=== PATIENT | male | born 1980 | race African-American/Black ===

== ENCOUNTER 2016-10-24 23:39 | Observation (INO) | payer MEDICAID ==
[2016-10-25] MEDS ORDERED: ONDANSETRON HCL 4 MG/2 ML VIAL IV ONE (00:20)
[2016-10-25] MEDS ORDERED: SODIUM CHLORIDE 0.9% 3 ML FLUSH FLUSH PRN (00:20)
[2016-10-25] MEDS ORDERED: MORPHINE 4 MG/ML INJECTION IV ONE (00:20)
[2016-10-25] MEDS ORDERED: NS 1,000 ML IV ONE ×2 (00:20)
--- NOTE | 2016-10-25 00:27 | EDPRACDOC ---
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 PT STATES HAS BEEN GOING ON FOR 2 DAYS. PT ALSO STATES HE WAS HAVING SOME VOMITING PRIOR TO ARRIVAL TO ED. Pain Location: Reports: Upper, Lower, Cervical, Thoracic, Lumbar Pain Radiates To: Reports: Thigh, Buttock (B/L) Pain Caused By: Reports: Spontaneous Circumstances: Reports: Unknown Relevant History: Reports: Chronic back pain Pain Severity: Reports: Moderate Pain Quality: Reports: Aching, Dull, Sharp Worsened By: Reports: Movement, Twisting, Walking Associated Signs and Symptoms: Reports: Nausea, Vomiting <Nicci Torres - Last Filed: 10/25/16 03:34> <Emerita Colin - Last Filed: 10/25/16 06:30> - General Information Chief Complaint: Lower Leg Pain Stated Complaint: BACK & LEG PAIN Time Seen by Provider: 10/25/16 00:03 Home Medications: Home Medications Insulin Novolog 70/30 Mix [Novolog 70-30 Insulin Mix] 45 unit SQ HS 07/21/13 Insulin Novolog 70/30 Mix [Novolog 70-30 Insulin Mix] 65 units SQ QAM #1 vial Insulin Lispro [Humalog] units SQ 08/31/16 Allergies/Adverse Reactions: Allergies Allergy/AdvReac Type Severity Reaction Status Date / Time Penicillins Allergy Severe RASH Verified 07/14/16 03:37 Cephalosporins Allergy Unknown hives Verified 07/14/16 03:37 ibuprofen Allergy Unknown Bleeding Verified 07/14/16 03:37 sulfamethoxazole Allergy Unknown Rash-Genera Verified 07/14/16 03:37 [From Bactrim] lized trimethoprim [From Bactrim] Allergy Unknown Rash-Genera Verified 07/14/16 03:37 lized tramadol Allergy Nausea/Vomi Verified 07/14/16 03:37 ting ED Past Medical History - History Reviewed Yes Nurses notes reviewed and agree except as marked Travel Outside of [place] in the Last 3 Months?: No - Patient Medical History Neurological History: Reports: Dementia Cardiac History: Reports: Hypertension (no longer medicated) GI/ History: Reports: Renal Disease (unsure) Musculoskeletal History: Reports: Rheumatoid Arthritis Psychological History: Reports: Depression Systemic History: Reports: Diabetes (IDDM). Denies: Cancer Surgical History: Reports: Tonsillectomy/Adnoidectomy, Other (HEMORRHOID SX, ABSCESS I AND D) - Family Medical History Reports: Hypertension (sister), Diabetes (mom,2 siblings). Denies: Cancer, Stroke, Cardiac Disorders - Social Medical History Smoking Status: Heavy tobacco smoker (5 or more cigarettes/day or daily pipe/ cigar) ETOH: None Substance Abuse: None Lives With: Spouse Lives In: Home <Nicci Torres - Last Filed: 10/25/16 03:34> EDM Review of Systems - Review of Systems ROS Negative Except as Marked: Yes All systems reviewed and were negative except as marked Constitutional: No Symptoms Reported. negative: Fever, Chills, Weakness, Fatigue, Loss of Appetite Eyes: No Symptoms Reported. negative: Redness, Blurred Vision, Double Vision, Discharge, Pain, Light Sensitive, Photophobia Ears: No Symptoms Reported. negative: Pain, Hearing Loss, Drainage, Ear Pulling Throat: No Symptoms Reported. negative: Pain, Swelling Nose: No Symptoms Reported. negative: Congestion, Bleeding, Discharge, Injection, Swelling, Deformity, Ecchymosis, Tender, Abrasion, Laceration Mouth: No Symptoms Reported. negative: Pain, Drooling Respiratory: No Symptoms Reported. negative: Cough, Brassy Cough, Barky Cough, Shortness of Breath, Wheezing, Hemoptysis Cardiovascular: No Symptoms Reported. negative: Chest Pain, Palpitations, Syncope, Edema, Orthopnea, PND, Skin Mottling, Cyanosis Gastrointestinal: Nausea, Vomiting. negative: Constipation, Diarrhea, Formula Intolerance, Melena, Pain Genitourinary: Other (HASNT URINATED SINCE 5PM TODAY). negative: Bleeding, Dysuria, Discharge, Frequency, Hematuria, , Testicular Pain Neurological: Other (TINGLING AND PAIN IN LEGS). negative: Dizziness, Gait Difficulty, Headache, Numbness, Seizure, Speech Difficulty, Weakness Musculoskeletal: Back (T&L SPINE). negative: Arm, Ankle, Chestwall, Elbow, Forearm, Femur, Foot, Hand, Hip, Knee, Leg, Neck, Pelvis, Ribs, Shoulder, Wrist Integumentary: No Symptoms Reported. negative: Itching, Rash, Bruising, Wound Allergic/Immunologic: No Symptoms Reported. negative: Hives, Itching Hematologic: No Symptoms Reported. negative: Lymphadenopathy, Easy Bruising, Easy Bleeding Endocrine: No Symptoms Reported. negative: Weight Gain, Weight Loss Psychiatric: No Symptoms Reported. negative: Anxiety, Depression, Hallucinations, Insomnia, Suicidal <Nicci Torres - Last Filed: 10/25/16 03:34> - Physical Exam Constitutional: No apparent distress, Alert (Awake) Oriented to: Time, Person, Place Last recorded Vital Signs: Last Vital Signs Temp 98.6 F 10/24/16 23:53 Pulse 83 10/24/16 23:53 Resp 20 10/24/16 23:53 BP 158/89 10/24/16 23:53 Pulse Ox 98 10/24/16 23:53 Oxygen Pulse Oxygen Saturation 98 O2 Device Room Air Oxygen Flow Rate Fraction of Inspired Oxygen ( FIO2) - HEENT Head: Normal ( normocephalic) Eye Exam: Normal (PERRL, EOMI, Sclera white) Oropharynx: Normal (Pharynx:Moist without exudate,Gums-no swelling) Tympanic Membrane: Normal ENT EAC: Normal TMJ: Normal Nose: No Symptoms Reported (septum midline) Neck: Normal (FROM, trachea at midline) - Respiratory/Cardiovascular Respiratory: Normal - CTA (BBS clear to auscultation without adventitious sounds ) Cardiovascular: Normal (RRR without murmur, gallop or rub) - GI Auscultation: Normal (NABS) Palpation: Normal (Soft,No rebound or guarding, non distended) Tenderness: Non tender Strickland's Sign: Negative - Bladder: Normal - Musculoskeletal Back: Normal, Other (NO SIGNIFICANT TENDERNESS TO CERVICAL THORACIC OR LUMBAR MIDLINE SPINE) Extremities: Normal (Normal tone, Pulses 2+ No cyanosis or edema, FROM) - Integumentary Skin: Normal, Warm, Dry Lymphatics: Normal (no adenopathy) - Neurologic Memory Impaired: Normal Motor Function: Normal (Normal tone, Pulses 2+ No cyanosis or edema, FROM) Cranial Nerve: Normal (CN II-X11 intact sensation, strength 5/5) Cerebellar: Normal Mood Description: Normal Perception: Normal <Nicci Torres - Last Filed: 10/25/16 03:34> - Physical Exam Last recorded Vital Signs: Last Vital Signs Temp 98.6 F 10/24/16 23:53 Pulse 80 10/25/16 01:31 Resp 20 10/25/16 01:31 BP 147/71 10/25/16 01:31 Pulse Ox 98 10/25/16 01:31 Oxygen Pulse Oxygen Saturation 98 O2 Device Room Air Oxygen Flow Rate Fraction of Inspired Oxygen ( FIO2) <Emerita Colin Philip - Last Filed: 10/25/16 06:30> ED Back Exam - Neurologic Motor Deficit: None Reflexes: Normal - Musculoskeletal Cervical: Normal Thoracic: Normal Lumbar: Normal Midline: Normal Paraspinous: Normal Straight Leg Raise: Negative Pelvis: Normal <Nicci Torres - Last Filed: 10/25/16 03:34> - Differential Diagnosis Musculoskeletal pain, Strain, Urinary tract infection - Results 10/25/16 00:39 10/25/16 00:39 <Nicci Torres - Last Filed: 10/25/16 03:34> - Re-evaluation Re-evaluation 3 Re-evaluation Time: 06:00 (STILL HAVING PAIN MID THORACIC AREA, CANT GET COMFORTABLE.) - Results 10/25/16 00:39 10/25/16 00:39 WBC 16.3 xk/uL (3.8-10.8) H 10/25/16 00:39 RBC 4.78 xM/uL (4.70-6.10) 10/25/16 00:39 Hgb 13.8 g/dL (14.0-18.0) L 10/25/16 00:39 Hct 41.2 % (42-52) L 10/25/16 00:39 MCV 86 fL (80-94) 10/25/16 00:39 MCH 28.7 pg (27-32) 10/25/16 00:39 MCHC 33.4 g/dl (33-36) 10/25/16 00:39 RDW 14.9 % (11.5-14.5) H 10/25/16 00:39 Plt Count 153 xk/uL (130-400) 10/25/16 00:39 MPV 11.0 fL (7.4-10.4) H 10/25/16 00:39 Neut % (Auto) 72.0 % (45-76) 10/25/16 00:39 Lymph % (Auto) 21.4 % (17-44) 10/25/16 00:39 Wilcox % (Auto) 4.7 % (3-10) 10/25/16 00:39 Eos % (Auto) 1.7 % (0-5) 10/25/16 00:39 Baso % (Auto) 0.2 % (0-2) 10/25/16 00:39 Absolute Neuts (auto) 11.74 xk/uL (1.7-8.2) H 10/25/16 00:39 Absolute Lymphs (auto) 3.42 xk/uL (0.65-4.75) 10/25/16 00:39 Sodium 142 mEq/L (137-146) 10/25/16 00:39 Potassium 3.5 mEq/L (3.5-5.1) 10/25/16 00:39 Chloride 101 mEq/L (98-107) 10/25/16 00:39 Carbon Dioxide 28 mMOL/L (22-33) 10/25/16 00:39 Anion Gap 17 mEq/L (8-16) H 10/25/16 00:39 BUN 13 MG/DL (9-20) 10/25/16 00:39 Creatinine 0.70 MG/DL (0.66-1.25) 10/25/16 00:39 Estimated GFR (MDRD) > 60 mL/min (>=60) 10/25/16 00:39 Glucose 146 MG/DL (70-99) H 10/25/16 00:39 POC Capillary Glucose 140 MG/DL (70-99) H 10/25/16 01:17 Calculated Osmolality 276 MOs/Kg (270-290) 10/25/16 00:39 Calcium 7.3 MG/DL (8.4-10.2) L 10/25/16 00:39 Total Bilirubin 0.8 MG/DL (0.2-1.3) 10/25/16 00:39 AST 24 IU/L (17-59) 10/25/16 00:39 ALT 20 IU/L (21-72) L 10/25/16 00:39 Alkaline Phosphatase 66 IU/L (38-126) 10/25/16 00:39 Total Protein 8.4 G/DL (6.3-8.2) H 10/25/16 00:39 Albumin 4.4 G/DL (3.5-5.0) 10/25/16 00:39 Lipase 66 U/L (23-300) 10/25/16 00:39 Urine Color Yellow 10/25/16 00:35 Urine Clarity Clear 10/25/16 00:35 Urine pH 6.0 (5.0-8.0) 10/25/16 00:35 Ur Specific Bricelyn 1.015 (1.003-1.035) 10/25/16 00:35 Urine Protein 2+ (NEG/TRACE) H 10/25/16 00:35 Urine Glucose (UA) Trace (NEGATIVE) 10/25/16 00:35 Urine Ketones Neg (NEGATIVE) 10/25/16 00:35 Urine Occult Blood 1+ (NEG/TRACE) H 10/25/16 00:35 Urine Nitrite Neg (NEGATIVE) 10/25/16 00:35 Urine Bilirubin Neg (NEGATIVE) 10/25/16 00:35 Urine Urobilinogen 2 MG/DL (0-1) H 10/25/16 00:35 Ur Leukocyte Esterase Neg (NEGATIVE) 10/25/16 00:35 Urine RBC 5-10 (0-2) H 10/25/16 00:35 Urine WBC 2-5 (0-2) H 10/25/16 00:35 Urine Bacteria Few (NEG/FEW) 10/25/16 00:35 Urine Mucus Mod (NEG/OCC) H 10/25/16 00:35 Urine Opiates Screen Neg (NEGATIVE) 10/25/16 00:35 Ur Oxycodone Screen Neg (NEGATIVE) 10/25/16 00:35 Urine Methadone Screen Neg (NEGATIVE) 10/25/16 00:35 Ur Barbiturates Screen Neg (NEGATIVE) 10/25/16 00:35 Ur Tricyclics Screen Neg (NEGATIVE) 10/25/16 00:35 Ur Phencyclidine Scrn Neg (NEGATIVE) 10/25/16 00:35 Ur Amphetamines Screen Neg (NEGATIVE) 10/25/16 00:35 U Methamphetamines Scrn Neg (NEGATIVE) 10/25/16 00:35 Urine MDMA Screen Neg (NEGATIVE) 10/25/16 00:35 U Benzodiazepines Scrn Neg (NEGATIVE) 10/25/16 00:35 Urine Cocaine Screen Neg (NEGATIVE) 10/25/16 00:35 Ur THC Screen *positive* (NEGATIVE) H 01/26/17 00:35 Lab Results 10/25/16 10/25/16 10/25/16 01:17 00:39 00:39 WBC 16.3 H RBC 4.78 Hgb 13.8 L Hct 41.2 L MCV 86 MCH 28.7 MCHC 33.4 RDW 14.9 H Plt Count 153 MPV 11.0 H Neut % (Auto) 72.0 Lymph % (Auto) 21.4 Wilcox % (Auto) 4.7 Eos % (Auto) 1.7 Baso % (Auto) 0.2 Absolute Neuts (auto) 11.74 H Absolute Lymphs (auto) 3.42 Sodium 142 Potassium 3.5 Chloride 101 Carbon Dioxide 28 Anion Gap 17 H BUN 13 Creatinine 0.70 Estimated GFR (MDRD) > 60 Glucose 146 H POC Capillary Glucose 140 H Calculated Osmolality 276 Calcium 7.3 L Total Bilirubin 0.8 AST 24 ALT 20 L Alkaline Phosphatase 66 Total Protein 8.4 H Albumin 4.4 Lipase 66 Urine Color Urine Clarity Urine pH Ur Specific Bricelyn Urine Protein Urine Glucose (UA) Urine Ketones Urine Occult Blood Urine Nitrite Urine Bilirubin Urine Urobilinogen Ur Leukocyte Esterase Urine RBC Urine WBC Urine Bacteria Urine Mucus Urine Opiates Screen Ur Oxycodone Screen Urine Methadone Screen Ur Barbiturates Screen Ur Tricyclics Screen Ur Phencyclidine Scrn Ur Amphetamines Screen U Methamphetamines Scrn Urine MDMA Screen U Benzodiazepines Scrn Urine Cocaine Screen Ur THC Screen 10/25/16 10/25/16 00:35 00:35 WBC RBC Hgb Hct MCV MCH MCHC RDW Plt Count MPV Neut % (Auto) Lymph % (Auto) Wilcox % (Auto) Eos % (Auto) Baso % (Auto) Absolute Neuts (auto) Absolute Lymphs (auto) Sodium Potassium Chloride Carbon Dioxide Anion Gap BUN Creatinine Estimated GFR (MDRD) Glucose POC Capillary Glucose Calculated Osmolality Calcium Total Bilirubin AST ALT Alkaline Phosphatase Total Protein Albumin Lipase Urine Color Yellow Urine Clarity Clear Urine pH 6.0 Ur Specific Bricelyn 1.015 Urine Protein 2+ H Urine Glucose (UA) Trace Urine Ketones Neg Urine Occult Blood 1+ H Urine Nitrite Neg Urine Bilirubin Neg Urine Urobilinogen 2 H Ur Leukocyte Esterase Neg Urine RBC 5-10 H Urine WBC 2-5 H Urine Bacteria Few Urine Mucus Mod H Urine Opiates Screen Neg Ur Oxycodone Screen Neg Urine Methadone Screen Neg Ur Barbiturates Screen Neg Ur Tricyclics Screen Neg Ur Phencyclidine Scrn Neg Ur Amphetamines Screen Neg U Methamphetamines Scrn Neg Urine MDMA Screen Neg U Benzodiazepines Scrn Neg Urine Cocaine Screen Neg Ur THC Screen *positive* H - Diagnostic Imaging Abdomen Image interpreted by: Radiologist Patient Name: LARISSA GOMEZ LOC: ED : 1980 AGE: 36 Order Date:10/25/16 Date of Service: Report # [id number] Ord Physician: Nicci Torres Exam # [id number] Emergency Physician: Emerita Colin MD Exam(s): [id number] CT/CT UROGRAM CLINICAL DATA: Hematuria. Back pain. Difficulty with urination. EXAM: CT ABDOMEN AND PELVIS WITHOUT CONTRAST TECHNIQUE: Multidetector CT imaging of the abdomen and pelvis was performed following the standard protocol without IV contrast. COMPARISON: 06/04/2015 FINDINGS: Atelectasis in the lung bases. Kidneys are symmetrical in size and shape. No hydronephrosis or hydroureter. No renal, ureteral, or bladder stones. Bladder wall is not thickened. Cholelithiasis with gallbladder wall thickening and pericholecystic edema suggesting acute cholecystitis. No bile duct dilatation. The unenhanced appearance of the liver, spleen, pancreas, adrenal glands, abdominal aorta, inferior vena cava, and retroperitoneal lymph nodes is unremarkable. Stomach, small bowel, and colon are decompressed. Congenital non rotation of the colon. Scattered stool in the colon. Small umbilical hernia and small periumbilical hernias containing fat. Pelvis: Cecum and ileocecal valve are in the left lower quadrant. The appendix is not demonstrated. Prostate gland is not enlarged. No pelvic mass or lymphadenopathy. No free or loculated pelvic fluid collections. No evidence of diverticulitis. Mild thoracolumbar scoliosis with degenerative changes in the spine and hips. No destructive bone lesions. IMPRESSION: No renal or ureteral stone or obstruction. Cholelithiasis with gallbladder wall thickening and edema suggesting cholecystitis. Congenital non rotation of the colon. Small umbilical and periumbilical hernias containing fat. Electronically Signed By: Amilcar Mina M.D. On: 10/25/2016 02:27 Electronically Signed By: Soren Mina MD Electronically Signed Date/Time: [id number] Dictate Date/Time: 10/25/16221 Technologist: Cha Chaney Transcribed By: Jasiel Transcribed Date/Time: 10/25/16226 <Emerita Colin - Last Filed: 10/25/16 06:30> <Nicci Torres - Last Filed: 10/25/16 03:34> - Departure Disposition: Admit IP To This Hospital Education/Counseling Given To: Patient, Family Member Education/Counseling Given Regarding: Diagnosis, Treatment, Prognosis Decision to Admit Time: 06:05 Decision to admit date: 10/25/16 Decision to admit: from ED - Physician Consulted Surgery Time Called: 05:59 Provider Called: Charles Leroy Time General Duty Nurse Returned Call: 06:05 (WILL SEE IN ED) <Emerita Colin - Last Filed: 10/25/16 06:30> - Departure Condition: Stable Final Diagnosis: Acute cholecystitis due to biliary calculus, CONGENITAL MALROTATION OF COLON, UMBILICAL AND PERIUMBILICAL HERNIAS Referrals: None,No Provider [Primary Care Provider] - One Week
[2016-10-25 00:54] LABS: ALL NEG? NO
[2016-10-25 00:57] LABS: AUTOMATED BASOPHIL 0.2 % (0-2); AUTOMATED EOSINOPHIL 1.7 % (0-5); AUTOMATED LYMPH 21.4 % (17-44); AUTOMATED MONOCYTE 4.7 % (3-10)
[2016-10-25 01:00] LABS: LEUKOCYTES/URINE NEG (NEGATIVE); NITRITE/URINE NEG (NEGATIVE); URINE OCCULT BLOOD 1+ (NEG/TRACE)
[2016-10-25 01:03] LABS: MDMA* NEG (NEGATIVE); METHAMPHETAMINES NEG (NEGATIVE); OXYCODONE NEG (NEGATIVE)
[2016-10-25 01:06] LABS: BLOOD UREA NITROGEN 13 MG/DL (9-20); CALCIUM 7.3 MG/DL (8.4-10.2); CALCULATED OSMOLALITY 276 MOs/Kg (270-290); CHLORIDE 101 mEq/L (98-107); GLUCOSE 146 MG/DL (70-99); SODIUM LEVEL 142 mEq/L (137-146); TOTAL PROTEIN 8.4 G/DL (6.3-8.2)
--- NOTE | 2016-10-25 01:18 | DIRPT ---
CLINICAL DATA: Acute onset of lower back pain for 2 days. Initial encounter. EXAM: LUMBAR SPINE - COMPLETE 4+ VIEW COMPARISON: Lumbar spine radiographs performed 01/24/2015, and CT of the abdomen and pelvis from 06/04/2015 FINDINGS: There is no evidence of fracture or subluxation. Vertebral bodies demonstrate normal height and alignment. Intervertebral disc spaces are preserved. Mild left lateral facet disease is noted along the lower thoracic and upper lumbar spine. The visualized bowel gas pattern is unremarkable in appearance; air and stool are noted within the colon. The sacroiliac joints are within normal limits. IMPRESSION: No evidence of fracture or subluxation along the lumbar spine. Electronically Signed By: Michael Garcia M.D. On: 10/25/2016 01:16
--- NOTE | 2016-10-25 01:19 | DIRPT ---
CLINICAL DATA: Upper and lower back pain for 2 days. No injury. EXAM: THORACIC SPINE 2 VIEWS COMPARISON: Two-view chest 03/07/2016. Thoracic spine 02/08/2014. FINDINGS: Thoracolumbar scoliosis convex towards the right. No anterior subluxation. Mild degenerative changes in the thoracic spine with narrowed interspaces and endplate hypertrophic changes. No focal bone lesion or bone destruction. No vertebral compression deformities. No paraspinal soft tissue swelling. IMPRESSION: Thoracolumbar scoliosis convex towards the right. Mild degenerative changes. No change since previous study. Electronically Signed By: Amilcar Mina M.D. On: 10/25/2016 01:16
[2016-10-25] MEDS ORDERED: HYDROmorphone 1 MG INJECTION IV ONE ×3 (01:50→06:19)
--- NOTE | 2016-10-25 02:30 | DIRPT ---
CLINICAL DATA: Hematuria. Back pain. Difficulty with urination. EXAM: CT ABDOMEN AND PELVIS WITHOUT CONTRAST TECHNIQUE: Multidetector CT imaging of the abdomen and pelvis was performed following the standard protocol without IV contrast. COMPARISON: 06/04/2015 FINDINGS: Atelectasis in the lung bases. Kidneys are symmetrical in size and shape. No hydronephrosis or hydroureter. No renal, ureteral, or bladder stones. Bladder wall is not thickened. Cholelithiasis with gallbladder wall thickening and pericholecystic edema suggesting acute cholecystitis. No bile duct dilatation. The unenhanced appearance of the liver, spleen, pancreas, adrenal glands, abdominal aorta, inferior vena cava, and retroperitoneal lymph nodes is unremarkable. Stomach, small bowel, and colon are decompressed. Congenital non rotation of the colon. Scattered stool in the colon. Small umbilical hernia and small periumbilical hernias containing fat. Pelvis: Cecum and ileocecal valve are in the left lower quadrant. The appendix is not demonstrated. Prostate gland is not enlarged. No pelvic mass or lymphadenopathy. No free or loculated pelvic fluid collections. No evidence of diverticulitis. Mild thoracolumbar scoliosis with degenerative changes in the spine and hips. No destructive bone lesions. IMPRESSION: No renal or ureteral stone or obstruction. Cholelithiasis with gallbladder wall thickening and edema suggesting cholecystitis. Congenital non rotation of the colon. Small umbilical and periumbilical hernias containing fat. Electronically Signed By: Amilcar Mina M.D. On: 10/25/2016 02:27
[2016-10-25] MEDS ORDERED: NICOTINE 21 MG PATCH TOP ONE (03:15)
[2016-10-25] MEDS ORDERED: Levofloxacin 750 mg/150 ml D5W 750 MG/150 ML RTU IV ONE (03:16)
[2016-10-25] MEDS ORDERED: Metronidazole 500 mg/100 ml 500 MG/100 ML RTU IV ONE (03:30)
[2016-10-25] MEDS: SODIUM CHLORIDE 0.9% 3 ML FLUSH FLUSH SCH ×2 (06:05→17:16)
[2016-10-25] MEDS ORDERED: ACETAMINOPHEN 325 MG/TAB TABLET PO PRN (07:30)
[2016-10-25] MEDS ORDERED: ONDANSETRON HCL 4 MG/2 ML VIAL IV PRN (07:30)
[2016-10-25] MEDS ORDERED: ONDANSETRON HCL 4 MG ODT TAB PO PRN (07:30)
[2016-10-25] MEDS ORDERED: ACETAMINOPHEN 650 MG SUPP PR PRN (07:30)
[2016-10-25] MEDS ORDERED: PROMETHAZINE 25 MG TAB PO PRN (07:30)
[2016-10-25] MEDS ORDERED: PROMETHAZINE 25 MG/ML VIAL IV PRN (07:30)
--- NOTE | 2016-10-25 07:39 | PCM.SURGCO ---
Consultation Date: 10/25/16 Requesting Physician: Emerita Colin Silk Soaker: Charles Leroy Consult Reason: Other (Cholecystitis.) - History of Present Illness Patient with back pain found to have cholecystitis. Patient had come to the emergency room complaining upper and lower back pain and bilateral leg pain. He was having difficulty walking because of the pain and was having problems urinating. This had been going on for a couple a days. He also had some vomiting. He had been worked up by Dr. Colin in the emergency room and had a CT scan that showed cholecystitis. We have been asked to see him for this. Patient has known diabetes and is a smoker. He has not had any abdominal surgeries. He had had any problems before this. He had normal liver function and lipase. Chief Complaint: Back pain. - Past Medical and Surgical History Cardiac History: Reports: Hypertension (no longer medicated). Denies: Coronary Artery Disease, Atrial Fibrillation Respiratory History: Reports: No Significant History. Denies: Asthma, Bronchitis GI/ History: Reports: Renal Disease (unsure), Gastroesophageal Reflux Systemic History: Reports: Diabetes (IDDM). Denies: Cancer Musculoskeletal History: Reports: Rheumatoid Arthritis. Denies: Arthritis Psychological History: Reports: Depression. Denies: Anxiety Neurological History: Reports: Dementia. Denies: Cerebrovascular Accident, Seizures Past Surgical History: Reports: Tonsillectomy/Adnoidectomy, Other (HEMORRHOID SX , ABSCESS I AND D) Allergies Penicillins Allergy (Severe, Verified 10/25/16 07:06) RASH Cephalosporins Allergy (Unknown, Verified 10/25/16 07:06) hives ibuprofen Allergy (Unknown, Verified 10/25/16 07:06) Bleeding sulfamethoxazole [From Bactrim] Allergy (Unknown, Verified 10/25/16 07:06) Rash-Generalized trimethoprim [From Bactrim] Allergy (Unknown, Verified 10/25/16 07:06) Rash-Generalized tramadol Allergy (Verified 10/25/16 07:06) Nausea/Vomiting Home Medications Insulin Novolog 70/30 Mix [Novolog 70-30 Insulin Mix] 45 unit SQ HS 07/21/13 Insulin Novolog 70/30 Mix [Novolog 70-30 Insulin Mix] 65 units SQ QAM #1 vial Insulin Lispro [Humalog] 0 units SQ .SSI 08/31/16 - Social History Travel Outside of [place] in the Last 3 Months?: No Lives: With Family Smoking Status: Heavy tobacco smoker (5 or more cigarettes/day or daily pipe/ cigar) Social History: Denies: Alcohol Use - Family History Reports: Hypertension (sister), Diabetes (mom,2 siblings). Denies: Cancer, Stroke, Cardiac Disorders - Review of Systems Constitutional: No Symptoms Reported. negative: Chills, Fever Eyes: No Symptoms Reported. negative: Blurred Vision, Double Vision Ears: No Symptoms Reported. negative: Drainage, Hearing Loss Nose: No Symptoms Reported. negative: Abrasion, Bleeding Mouth: No Symptoms Reported. negative: Pain, Tooth Pain Throat/Neck: No Symptoms Reported. negative: Pain, Hoarseness Respiratory: No Symptoms Reported. negative: Cough, Sputum Cardiovascular: No Symptoms Reported. negative: Chest Pain, Palpitations Gastrointestinal: Nausea, Vomiting. negative: Abdominal Pain Genitourinary: No Symptoms Reported. negative: Bleeding, Dysuria Neurological: Tingling (In legs.). negative: Dizziness, Seizure Musculoskeletal:: Other (Back pain.) Integumentary: No Symptoms Reported. negative: Bruising, Itching Allergic/Immunologic: No Symptoms Reported. negative: Hives, Itching Hematologic: No Symptoms Reported. negative: Lymphadenopathy, Anemia Endocrine: No Symptoms Reported, Diabetes. negative: Weight Gain, Weight Loss Psychiatric: No Symptoms Reported. negative: Anxiety, Depression - Physical Exam Vital Signs: Initial Vitals Temperature 98.6 F 10/24/16 23:53 Pulse Rate 83 10/24/16 23:53 Respiratory Rate 20 10/24/16 23:53 Blood Pressure 158/89 10/24/16 23:53 Pulse Oxygen Saturation 98 10/24/16 23:53 Constitutional: No apparent distress, Alert Oriented to: Time, Person, Place - HEENT Head: Normal. negative: Laceration, Tender Eye: Normal. negative: Edema, Scleral Icterus Oropharynx: Normal. negative: Membranes Dry, Red ENT EAC: Normal. negative: Blood TMJ: Normal. negative: Crepitance, Tender Nose: No Symptoms Reported. negative: Abrasion, Bleeding Respiratory: Normal - CTA. negative: Diminished, Rhonchi Cardiovascular: Normal. negative: Bradycardia, Tachycardia, Irregular, Diastolic murmur, Systolic murmur - GI Auscultation: Normal. negative: Bruit Palpation: Normal. negative: Enlarged liver, Enlarged spleen Tenderness: Non tender Strickland's Sign: Negative Rectal Exam: Deferred - Exam Deferred: Yes - Musculoskeletal Back: Normal. negative: Abrasion, Ecchymosis, CVA Tenderness, Thoracic Step-off , Lumbar Step-off Extremities: Normal. negative: Calf Tenderness, Clubbing, Cyanosis, Edema Spine: full range of motion, normal alignment - Integumentary Skin: Normal. negative: Clammy, Diaphoretic Lymphatics: Normal. negative: Adenopathy, Tender - Neurologic Memory Impaired: Normal Motor Function: Normal Cranial Nerve: Normal Cerebellar: Normal Mood Description: Normal Thought: Coherent Perception: Normal - Lab Results 10/25/16 00:39 10/25/16 00:39 - Assessment/Plan (1) Acute cholecystitis due to biliary calculus K80.00 - CALCULUS OF GALLBLADDER W ACUTE CHOLECYST W/O OBSTRUCTION Acute Comment: Admit for medical clearance then cholecystectomy. I explained this in detail to the patient and he understood and agreed. (2) Diabetes E11.9 - TYPE 2 DIABETES MELLITUS WITHOUT COMPLICATIONS Acute D D D D P D D L C Comment: Medical evaluation. NPO after midnight. (3) Tobacco abuse Z72.0 - TOBACCO USE Acute Comment: Smoking cessation.
[2016-10-25] MEDS: LR 1,000 ML IV SCH (08:44)
[2016-10-25] MEDS: OXYCODONE HCL 5 MG TABLET PO PRN ×4 (08:44→21:19)
[2016-10-25] MEDS ORDERED: Vaccine Screening Complete SCH (12:00)
[2016-10-25] MEDS: NICOTINE 21 MG PATCH TOP SCH (13:14)
[2016-10-25] MEDS ORDERED: Albuterol/Ipratropium Neb 3 ML NEB NEB PRN (14:25)
[2016-10-25] MEDS: Metronidazole 500 mg/100 ml 500 MG/100 ML RTU IV SCH ×2 (14:38→21:19)
--- NOTE | 2016-10-25 14:38 | HIMCONSMED ---
Consultation Date: 10/25/16 Requesting Physician: Charles Leroy Consulting Doctor: Moris Maradiaga Consult Reason: Medical Management 36 yoaam presented emergency room early on today for evaluation of sudden onset of severe back and leg pain. Patient also reported episodes of indigestion midepigastric and right upper quadrant discomfort associated with nausea vomiting. Patient has developed symptoms over few days prior to this presentation and stays that low back pain has become constant. Strong suspicion for kidney stone was raised by ED team and CT urogram was obtained which showed no renal or ureteral stone obstruction but cholelithiasis with gallbladder wall thickening and edema suggestive of acute cholecystitis. Patient has been admitted to surgical services of Dr. Leroy and medical consultation was phoned in for inpatient management of chronic medical conditions. Chief Complaint: and,back, flank pain. nausea/vomiting - Past Medical and Surgical History Cardiac History: Reports: Hypertension (no longer medicated), Hypercholesterolemia Respiratory History: Reports: COPD, Cough, Chronic Bronchitis, Emphysema GI/ History: Reports: Renal Failure, Gastroesophageal Reflux. Denies: Renal Disease Systemic History: Reports: Diabetes (IDDM). Denies: Cancer Musculoskeletal History: Reports: Rheumatoid Arthritis. Denies: Arthritis Psychological History: Reports: Depression, Anxiety Neurological History: Reports: No Significant History Past Surgical History: Reports: Tonsillectomy/Adnoidectomy, Other (HEMORRHOID SX , ABSCESS I AND D) Allergies Penicillins Allergy (Severe, Verified 10/25/16 07:06) RASH Cephalosporins Allergy (Unknown, Verified 10/25/16 07:06) hives ibuprofen Allergy (Unknown, Verified 10/25/16 07:06) Bleeding sulfamethoxazole [From Bactrim] Allergy (Unknown, Verified 10/25/16 07:06) Rash-Generalized trimethoprim [From Bactrim] Allergy (Unknown, Verified 10/25/16 07:06) Rash-Generalized tramadol Allergy (Verified 10/25/16 07:06) Nausea/Vomiting Home Medications Insulin Novolog 70/30 Mix [Novolog 70-30 Insulin Mix] 45 unit SQ HS 07/21/13 Insulin Novolog 70/30 Mix [Novolog 70-30 Insulin Mix] 65 units SQ QAM #1 vial Insulin Lispro [Humalog] 0 units SQ .SSI 08/31/16 - Social History Travel Outside of [place] in the Last 3 Months?: No Lives: With Family Smoking Status: Heavy tobacco smoker (5 or more cigarettes/day or daily pipe/ cigar) - Family History Reports: Hypertension (sister), Diabetes (mom,2 siblings). Denies: Cancer, Stroke, Cardiac Disorders - Review of Systems Constitutional: Chills, Diaphoresis, Loss of Appetite, Weakness Eyes: No Symptoms Reported Ears: No Symptoms Reported Nose: No Symptoms Reported Mouth: No Symptoms Reported Throat/Neck: No Symptoms Reported Respiratory: Cough, Shortness of Breath, Wheezing Cardiovascular: No Symptoms Reported Gastrointestinal: Nausea, Vomiting, Abdominal Pain, Heartburn Genitourinary: No Symptoms Reported Neurological: No Symptoms Reported, Weakness Musculoskeletal:: Arthritis Integumentary: No Symptoms Reported Hematologic: No Symptoms Reported Endocrine: No Symptoms Reported Psychiatric: No Symptoms Reported - Physical Exam Vital Signs: Initial Vitals Temperature 98.6 F 10/24/16 23:53 Pulse Rate 83 10/24/16 23:53 Respiratory Rate 20 10/24/16 23:53 Blood Pressure 158/89 10/24/16 23:53 Pulse Oxygen Saturation 98 10/24/16 23:53 Constitutional: Alert, Distress, Restless Oriented to: Time, Person, Place - HEENT Head: Normal Eye: Normal Oropharynx: Normal, Membranes Dry ENT EAC: Normal TMJ: Normal Nose: No Symptoms Reported Respiratory: Diminished, Rhonchi Cardiovascular: Normal, Systolic murmur - GI Auscultation: Normal Tenderness: Moderate, RUQ, Epigastric Rectal Exam: Deferred - Exam Deferred: Yes - Musculoskeletal Back: Normal Extremities: Normal Spine: non-tender - Integumentary Skin: Normal, Warm Lymphatics: Normal - Neurologic Memory Impaired: Normal Motor Function: Normal Cranial Nerve: Normal Cerebellar: Normal Mood Description: Anxious Thought: Coherent Perception: Normal - Diagnostic Findings Allergies Penicillins Allergy (Severe, Verified 10/25/16 07:06) RASH Cephalosporins Allergy (Unknown, Verified 10/25/16 07:06) hives ibuprofen Allergy (Unknown, Verified 10/25/16 07:06) Bleeding sulfamethoxazole [From Bactrim] Allergy (Unknown, Verified 10/25/16 07:06) Rash-Generalized trimethoprim [From Bactrim] Allergy (Unknown, Verified 10/25/16 07:06) Rash-Generalized tramadol Allergy (Verified 10/25/16 07:06) Nausea/Vomiting Last Vital Signs Temp 97.7 F 10/25/16 11:48 Pulse 88 10/25/16 11:48 Resp 18 10/25/16 11:48 BP 156/90 10/25/16 11:48 Pulse Ox 95 10/25/16 11:48 10/25/16 00:39 10/25/16 00:39 Abnormal Lab Results 10/25/16 10/25/16 10/25/16 00:35 00:35 00:39 WBC Hgb Hct RDW MPV Absolute Neuts (auto) Anion Gap 17 H Glucose 146 H POC Capillary Glucose Calcium 7.3 L ALT 20 L Total Protein 8.4 H Urine Protein 2+ H Urine Occult Blood 1+ H Urine Urobilinogen 2 H Urine RBC 5-10 H Urine WBC 2-5 H Urine Mucus Mod H Ur THC Screen *positive* H 10/25/16 10/25/16 10/25/16 00:39 01:17 08:43 WBC 16.3 H Hgb 13.8 L Hct 41.2 L RDW 14.9 H MPV 11.0 H Absolute Neuts (auto) 11.74 H Anion Gap Glucose POC Capillary Glucose 140 H 172 H Calcium ALT Total Protein Urine Protein Urine Occult Blood Urine Urobilinogen Urine RBC Urine WBC Urine Mucus Ur THC Screen 10/25/16 11:43 WBC Hgb Hct RDW MPV Absolute Neuts (auto) Anion Gap Glucose POC Capillary Glucose 165 H Calcium ALT Total Protein Urine Protein Urine Occult Blood Urine Urobilinogen Urine RBC Urine WBC Urine Mucus Ur THC Screen Patient Name: LARISSA GOMEZ LOC: ED : 1980 AGE: 36 Order Date:10/25/16 Date of Service: Report # [id number] Ord Physician: Nicci Torres Exam # [id number] Emergency Physician: Emerita Colin MD Exam(s): [id number] CT/CT UROGRAM CLINICAL DATA: Hematuria. Back pain. Difficulty with urination. EXAM: CT ABDOMEN AND PELVIS WITHOUT CONTRAST TECHNIQUE: Multidetector CT imaging of the abdomen and pelvis was performed following the standard protocol without IV contrast. COMPARISON: 06/04/2015 FINDINGS: Atelectasis in the lung bases. Kidneys are symmetrical in size and shape. No hydronephrosis or hydroureter. No renal, ureteral, or bladder stones. Bladder wall is not thickened. Cholelithiasis with gallbladder wall thickening and pericholecystic edema suggesting acute cholecystitis. No bile duct dilatation. The unenhanced appearance of the liver, spleen, pancreas, adrenal glands, abdominal aorta, inferior vena cava, and retroperitoneal lymph nodes is unremarkable. Stomach, small bowel, and colon are decompressed. Congenital non rotation of the colon. Scattered stool in the colon. Small umbilical hernia and small periumbilical hernias containing fat. Pelvis: Cecum and ileocecal valve are in the left lower quadrant. The appendix is not demonstrated. Prostate gland is not enlarged. No pelvic mass or lymphadenopathy. No free or loculated pelvic fluid collections. No evidence of diverticulitis. Mild thoracolumbar scoliosis with degenerative changes in the spine and hips. No destructive bone lesions. IMPRESSION: No renal or ureteral stone or obstruction. Cholelithiasis with gallbladder wall thickening and edema suggesting cholecystitis. Congenital non rotation of the colon. Small umbilical and periumbilical hernias containing fat. Electronically Signed By: Amilcar Mina M.D. On: 10/25/2016 02:27 Electronically Signed By: Soren Mina MD Electronically Signed Date/Time: Patient Name: LARISSA GOMEZ LOC: ED : 1980 AGE: 36 Order Date:10/25/16 Date of Service: Report # [id number] Ord Physician: Nicci Torres Exam # [id number] Emergency Physician: Emerita Colin MD Exam(s): [id number] RAD/DG LUMBAR SPINE COMPLETE 4+V CLINICAL DATA: Acute onset of lower back pain for 2 days. Initial encounter. EXAM: LUMBAR SPINE - COMPLETE 4+ VIEW COMPARISON: Lumbar spine radiographs performed 01/24/2015, and CT of the abdomen and pelvis from 06/04/2015 FINDINGS: There is no evidence of fracture or subluxation. Vertebral bodies demonstrate normal height and alignment. Intervertebral disc spaces are preserved. Mild left lateral facet disease is noted along the lower thoracic and upper lumbar spine. The visualized bowel gas pattern is unremarkable in appearance; air and stool are noted within the colon. The sacroiliac joints are within normal limits. IMPRESSION: No evidence of fracture or subluxation along the lumbar spine. Electronically Signed By: Michael Garcia M.D. On: 10/25/2016 01:16 Electronically Signed By: Michael Garcia MD Electronically Signed Date/Time: 118 Dictate Date/Time: 10/25/16 0114 Technologist: Mary Kay Chauhan 10/25/16 00:39 10/25/16 00:39 Abnormal Lab Results 10/25/16 10/25/16 10/25/16 00:35 00:35 00:39 WBC Hgb Hct RDW MPV Absolute Neuts (auto) Anion Gap 17 H Glucose 146 H POC Capillary Glucose Calcium 7.3 L ALT 20 L Total Protein 8.4 H Urine Protein 2+ H Urine Occult Blood 1+ H Urine Urobilinogen 2 H Urine RBC 5-10 H Urine WBC 2-5 H Urine Mucus Mod H Ur THC Screen *positive* H 10/25/16 10/25/16 10/25/16 00:39 01:17 08:43 WBC 16.3 H Hgb 13.8 L Hct 41.2 L RDW 14.9 H MPV 11.0 H Absolute Neuts (auto) 11.74 H Anion Gap Glucose POC Capillary Glucose 140 H 172 H Calcium ALT Total Protein Urine Protein Urine Occult Blood Urine Urobilinogen Urine RBC Urine WBC Urine Mucus Ur THC Screen 10/25/16 11:43 WBC Hgb Hct RDW MPV Absolute Neuts (auto) Anion Gap Glucose POC Capillary Glucose 165 H Calcium ALT Total Protein Urine Protein Urine Occult Blood Urine Urobilinogen Urine RBC Urine WBC Urine Mucus Ur THC Screen - Assessment (1) DM2 (diabetes mellitus, type 2) E11.9 - TYPE 2 DIABETES MELLITUS WITHOUT COMPLICATIONS Acute Present on Admission: Yes Qualifiers: Diabetes mellitus complication status: with neurologic complications Diabetes mellitus complication detail: D Diabetic retinopathy severity: D Proliferative retinopathy type: P Diabetes mellitus macular edema: D Diabetes mellitus jail insulin use: D Laterality: L Chronic kidney disease stage: C Continue insulin 70 /30 at home doses. Withhold insulin on morning of surgery day, continue Accu-Cheks and sliding scale regular insulin along with ADA diet (2) GERD (gastroesophageal reflux disease) K21.9 - GASTRO-ESOPHAGEAL REFLUX DISEASE WITHOUT ESOPHAGITIS Chronic Present on Admission: Yes Qualifiers: Esophagitis presence: without esophagitis Qualified Code(s): K21.9 - Gastro -esophageal reflux disease without esophagitis Continue PPI (3) Acute cholecystitis due to biliary calculus K80.00 - CALCULUS OF GALLBLADDER W ACUTE CHOLECYST W/O OBSTRUCTION Acute Present on Admission: Yes Continue IV antibiotics IV fluids IV anti emetics and narcotic analgesics. For laparoscopic cholecystectomy in the morning. Will defer further management this problem to surgeon (4) COPD (chronic obstructive pulmonary disease) J44.9 - CHRONIC OBSTRUCTIVE PULMONARY DISEASE, UNSPECIFIED Chronic Present on Admission: Yes Qualifiers: COPD type: chronic bronchitis Chronic bronchitis type: C Emphysema type: E continue nebs (5) Abdominal pain R10.9 - UNSPECIFIED ABDOMINAL PAIN Acute Present on Admission: Yes Qualifiers: Abdominal location: generalized Qualified Code(s): R10.84 - Generalized abdominal pain Continue narcotic analgesics on as needed basis. (6) Nicotine addiction F17.200 - NICOTINE DEPENDENCE, UNSPECIFIED, UNCOMPLICATED Chronic Present on Admission: Yes Qualifiers: Nicotine product type: cigarettes Substance use status: unspecified nicotine-induced disorder Qualified Code(s): F17.219 - Nicotine dependence, cigarettes, with unspecified nicotine-induced disorders Patient strongly encouraged to cut back and quit. Case Care Discussed with: Patient, Consultants, Family, Nursing Staff, Sales Agent Financial Report Service Total Time: 55 min . Critical Care: No Code: 62975
[2016-10-25] MEDS ORDERED: NICOTINE 21 MG PATCH TOP SCH (15:00)
[2016-10-25] MEDS: PANTOPRAZOLE 40 MG TAB PO SCH (17:16)
[2016-10-25] MEDS: Albuterol/Ipratropium Neb 3 ML NEB NEB SCH ×2 (17:56→23:19)
[2016-10-25] MEDS: HYDROmorphone 1 MG INJECTION IV PRN (23:44)
[2016-10-26] MEDS: HYDROmorphone 1 MG INJECTION IV PRN ×2 (03:12→06:31)
[2016-10-26] MEDS ORDERED: Levofloxacin 750 mg/150 ml D5W 750 MG/150 ML RTU IV SCH (04:00)
[2016-10-26] MEDS: PANTOPRAZOLE 40 MG TAB PO SCH (06:31)
[2016-10-26] MEDS: SODIUM CHLORIDE 0.9% 3 ML FLUSH FLUSH SCH (06:31)
[2016-10-26] MEDS: Metronidazole 500 mg/100 ml 500 MG/100 ML RTU IV SCH ×2 (06:34→15:18)
[2016-10-26] MEDS: LR 1,000 ML IV SCH (07:52)
[2016-10-26] MEDS: Albuterol/Ipratropium Neb 3 ML NEB NEB SCH ×2 (09:36→15:44)
[2016-10-26] MEDS ORDERED: HYDROmorphone 2 MG/ML VIAL IM ONE (10:00)
[2016-10-26] MEDS ORDERED: ONDANSETRON HCL 4 MG/2 ML VIAL IV ONE (10:00)
[2016-10-26] MEDS ORDERED: DEXAMETHASONE 4 MG/ML VIAL IV ONE (10:00)
[2016-10-26] MEDS ORDERED: NEOSTIGMINE 1 MG/1 ML (1:1000) INJ 10 ML MDV IM ONE (10:00)
[2016-10-26] MEDS ORDERED: PROPOFOL 200 MG/20 ML VIAL IV ONE (10:00)
[2016-10-26] MEDS ORDERED: GLYCOPYRROLATE 1 MG VIAL IM ONE (10:00)
[2016-10-26] MEDS ORDERED: ROCURONIUM 50 MG/5 ML VIAL IV ONE (10:00)
[2016-10-26] MEDS ORDERED: MIDAZOLAM 2 MG/2 ML VIAL IV ONE (10:00)
[2016-10-26] MEDS: NICOTINE 21 MG PATCH TOP SCH (11:08)
[2016-10-26] MEDS ORDERED: BUPIVACAINE 0.25% 30 ML VIAL ONE (12:19)
[2016-10-26] MEDS ORDERED: ISOVUE-300 (61%) 50 ML ONE (12:19)
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
[2016-10-26] MEDS ORDERED: ONDANSETRON HCL 4 MG ODT TAB PO PRN (12:32)
[2016-10-26] MEDS ORDERED: FENTANYL 100 MCG/2 ML VIAL IV PRN ×2 (12:32)
[2016-10-26] MEDS ORDERED: MEPERIDINE 25 MG/ML TUBEX IV PRN (12:32)
[2016-10-26] MEDS ORDERED: hydrALAZINE 20 MG/ML VIAL IV PRN (12:32)
[2016-10-26] MEDS ORDERED: ONDANSETRON HCL 4 MG/2 ML VIAL IV PRN (12:32)
[2016-10-26] MEDS ORDERED: LABETALOL 20 MG/4 ML SYRINGE IV PRN (12:32)
[2016-10-26] MEDS: BUPIVACAINE 0.25%-EPINEPHRINE 1:200,000 30 ML ONE ×2 (13:13→13:33)
[2016-10-26] MEDS: BUPIVACAINE LIPOSOME/PF 1.3% 20 ML VIAL INF ONE ×2 (13:20→13:33)
[2016-10-26] MEDS ORDERED: Acetaminophen, Intravenous 1,000 MG/100 ML IVBOT IV ONE (14:00)
--- NOTE | 2016-10-26 14:17 | DIRPT ---
CLINICAL DATA: 36-year-old male with acute cholecystitis EXAM: INTRAOPERATIVE CHOLANGIOGRAM TECHNIQUE: Cholangiographic images from the C-arm fluoroscopic device were submitted for interpretation post-operatively. Please see the procedural report for the amount of contrast and the fluoroscopy time utilized. COMPARISON: CT abdomen/pelvis 10/25/2016 FINDINGS: A total of 6 intraoperative spot images were obtained during intraoperative cholangiogram at the time of laparoscopic cholecystectomy. The images depict cannulation of the gallbladder neck and opacification of the cystic duct in a portion of the biliary tree. Multiple filling defects are present within the cystic duct consistent with stones. The common bile duct does not fill well. IMPRESSION: 1. Positive intraoperative cholangiogram. Poor filling of the common bile duct but no definite choledocholithiasis. 2. Multiple small stones present within the cystic duct which may limit flow of contrast material into the common bile duct. Electronically Signed By: Jackson Rosales M.D. On: 10/26/2016 14:13
--- NOTE | 2016-10-26 14:23 | HIMOPRPT ---
DATE OF PROCEDURE: 10/26/16 PREOPERATIVE DIAGNOSIS: jAcute cholecystitis and cholelithiasis. POSTOPERATIVE DIAGNOSIS: Same. PROCEDURE: Laparoscopic cholecystectomy with intraoperative cholangiogram. SURGEON: Charles Leroy MD BRINE PROCESS OPERATOR: Landon Shane MD. ANESTHESIA: General Anesthesia. ESTIMATED BLOOD LOSS: Minimal COMPLICATIONS: None noted. ANTIBIOTICS: Preoperative antibiotics given. INDICATIONS: LARISSA GOMEZ is a 36 year-old M patient with acute cholecystitis and cholelithiasis. We had explained the risks and benefits including the risk of infection, bleeding, anesthesia, as well as bowel, bile duct injury and the unforeseen complications. The patient had understood, had agreed, and was brought for the above-mentioned procedure. PROCEDURE IN DETAIL: The patient was brought to the operating room and placed on the operating room table in supine position. After identification of the patient's site, was given adequate amount of general anesthesia, then prepped and draped in sterile manner. When given okay by Anesthesia, after appropriate time-out, an Optiview trocar was placed on umbilicus in usual manner without any difficulties. Abdomen was insufflated to 15 mmHg pressure with CO2 gas, and the head was placed up and the right side placed up. Two subcostal and one subxiphoid trocars were inserted under direct vision in usual manner without any problems. Gallbladder was aspirated then grasped, pulled lateral and cephalad. We dissected the gallbladder with blunt dissection and harmonic scalpel, dissecting out the cystic duct and cystic artery. A Nicole clamp was placed. Cholangiogram was obtained. This was felt to show stones in the cystic duct but not the common duct. Cholangiocatheter was removed. Cystic duct was multiply clipped and divided and an endoloop was placed on the cystic duct. Cystic artery was multiply clipped and divided. Then, gallbladder was placed under tension, dissected free with hook cautery dissection. It was placed in an Endopouch and removed without any difficulty. The abdomen was then re- insufflated and was irrigated with copious amounts of saline and suctioned dry. Hemostasis assured. Liver bed was inspected, was hemostatic. Clips were in good position. At that point, we went ahead and deflated the abdomen, assured hemostasis with at the trocar sites and brought the epigastric trocar site together with two #1 Vicryl sutures. All wounds were irrigated and brought together with prema. The patient was awoken and taken to recovery room in excellent condition with correct sponge counts and needle counts.
--- NOTE | 2016-10-26 14:26 | PCM.DCS92 ---
- Final/Secondary Discharge Diagnosis (1) Acute cholecystitis due to biliary calculus Acute K80.00 - CALCULUS OF GALLBLADDER W ACUTE CHOLECYST W/O OBSTRUCTION Present on Admission: Yes (2) Diabetes Acute E11.9 - TYPE 2 DIABETES MELLITUS WITHOUT COMPLICATIONS D D D D P D D L C Discharge Disposition: Home Discharge Condition: Improved Physician Follow up/Referrals: None,No Provider [Family Provider] - One Week Charles Leroy MD [Staff Physician] - Call for Appointment (Follow up one week.) Home Medications/ New Prescriptions: No Action Insulin Novolog 70/30 Mix [Novolog 70-30 Insulin Mix] 45 unit SQ HS Insulin Novolog 70/30 Mix [Novolog 70-30 Insulin Mix] 65 units SQ QAM #1 vial Insulin Lispro [Humalog] 0 units SQ .SSI Diet at Discharge: As Tolerated, Diabetic Activity: As Tolerated, No Heavy Lifting Call Office For: Worsening Symptoms Discontinue use of:: Alcohol, All Illegal Substances, All Types of Tobacco - DC Summary Notes Hospital Course Note:: Discharge summary on patient named LARISSA GOMEZ admitted to [facility] on 10/25/16 by Charles Leroy MD. Date of discharge is []. The patient was found to have acute cholecystitis and was admitted to the hospital for IV antibiotics. He was taken for laparoscopic cholecystectomy with intraoperative cholangiogram on 10/26/2016. He did well. Postoperatively with the patient tolerating his diet ambulating, voiding and having his pain and under control he was felt able be discharged to home. Instructions have been given. - Physical Exam Vital Signs: Initial Vitals Temperature 98.6 F 10/24/16 23:53 Pulse Rate 83 10/24/16 23:53 Respiratory Rate 20 10/24/16 23:53 Blood Pressure 158/89 10/24/16 23:53 Pulse Oxygen Saturation 98 10/24/16 23:53
[2016-10-26 15:39] VITALS: BMI 31.5
[2016-10-26 17:23] VITALS: TEMP 95.4
--- NOTE | 2016-10-26 17:47 | GENMEDPROG ---
Subjective Note: Patient in bed responsive follows commands. Tolerated laparoscopic cholecystectomy without any complications. Reports incision sites soreness but denies any abdominal pain, nausea vomiting. Passing flatus. Patient denies and difficulties breathing cough or phlegm production. Blood sugar under control with no episodes of hypoglycemia Notes Reviewed: Yes Events from last night noted and discussed with Clinical Staff Current Medication List: Reviewed Currently: Reports: Cough, LIZARRAGA, Sputum, Tobacco Use/Hx, Reflux Sx, Abdominal Pain DVT Prophylaxis: Yes - Physical Examination Vital Signs and I&O: Last Vital Signs Temp 95.4 F L 10/26/16 17:05 Pulse 90 10/26/16 17:05 Resp 18 10/26/16 17:05 BP 152/78 10/26/16 17:05 Pulse Ox 93 10/26/16 17:05 Oxygen Pulse Oxygen Saturation 93 O2 Device Room Air Oxygen Flow Rate Fraction of Inspired Oxygen ( FIO2) Intake & Output 10/23/16 10/24/16 10/25/16 10/26/16 23:59 23:59 23:59 23:59 Intake Total 2906 790 Output Total 1000 5 Balance 1906 785 Patient's weight 96.116 kg 99.79 kg General: Alert, Oriented x3, Cooperative, No acute distress HEENT: Normal, PERRLA, EOMI, Anicteric Sclera Neck: Non-tender, No Masses palpable Lymphatics: Normal Respiratory: Diminished, Rhonchi Cardiovascular: Regular rate, Normal S1, Normal S2 GI: No hepatospenomegaly, No masses, Tenderness Extremities/Musculoskeletal: Normal pulses Skin: Warm,Dry and Intact, No rashes, No breakdown, No significant lesion Neurological: Normal speech, Cranial nerves 3-12 NL Psych/Mental Status: Anxious Lab/DI/Studies Reviewed: Allergies Penicillins Allergy (Severe, Verified 10/25/16 07:06) RASH Cephalosporins Allergy (Unknown, Verified 10/25/16 07:06) hives ibuprofen Allergy (Unknown, Verified 10/25/16 07:06) Bleeding sulfamethoxazole [From Bactrim] Allergy (Unknown, Verified 10/25/16 07:06) Rash-Generalized trimethoprim [From Bactrim] Allergy (Unknown, Verified 10/25/16 07:06) Rash-Generalized tramadol Allergy (Verified 10/25/16 07:06) Nausea/Vomiting 10/25/16 00:39 10/25/16 00:39 Abnormal Lab Results 10/26/16 10/26/16 10:28 11:32 POC Capillary Glucose 127 H 114 H - Assessment (1) DM2 (diabetes mellitus, type 2) Acute E11.9 - TYPE 2 DIABETES MELLITUS WITHOUT COMPLICATIONS Qualifiers: Diabetes mellitus complication status: with neurologic complications Diabetes mellitus complication detail: D Diabetic retinopathy severity: D Proliferative retinopathy type: P Diabetes mellitus macular edema: D 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 Resume insulin 70 /30. Continue sliding scale and Accu-Cheks. (2) GERD (gastroesophageal reflux disease) Chronic K21.9 - GASTRO-ESOPHAGEAL REFLUX DISEASE WITHOUT ESOPHAGITIS Qualifiers: Esophagitis presence: without esophagitis Qualified Code(s): K21.9 - Gastro -esophageal reflux disease without esophagitis Comment/Plan: Continue PPI (3) Acute cholecystitis due to biliary calculus Acute K80.00 - CALCULUS OF GALLBLADDER W ACUTE CHOLECYST W/O OBSTRUCTION Comment/Plan: Status post cholecystectomy. Continue postop care. (4) COPD (chronic obstructive pulmonary disease) Chronic J44.9 - CHRONIC OBSTRUCTIVE PULMONARY DISEASE, UNSPECIFIED Qualifiers: COPD type: chronic bronchitis Chronic bronchitis type: C Emphysema type: E Comment/Plan: continue nebs (5) Abdominal pain Acute R10.9 - UNSPECIFIED ABDOMINAL PAIN Qualifiers: Abdominal location: generalized Qualified Code(s): R10.84 - Generalized abdominal pain Comment/Plan: Postop pain controlled (6) Nicotine addiction Chronic F17.200 - NICOTINE DEPENDENCE, UNSPECIFIED, UNCOMPLICATED Qualifiers: Nicotine product type: cigarettes Substance use status: unspecified nicotine-induced disorder Qualified Code(s): F17.219 - Nicotine dependence, cigarettes, with unspecified nicotine-induced disorders Comment/Plan: Patient strongly encouraged to cut back and quit. Case Care Discussed with: Patient, Consultants, Family, Nursing Staff, Other Education/Counseling Given To: Patient Education/Counseling Given Regarding: Diagnosis, Treatment, Prognosis, Follow Up Total Time: 45 min . Critical Care: No Code: [id number] (12+)
--- NOTE | 2016-10-26 17:51 | SC.ANESPOS ---
Post-Anesthesia Note LOC: Fully Awake Post-Anesthesia Assessment: Awake, Returned to Baseline, Hemodynamically Stable , Pain Control Adequate Phase I & II Recovery Complete: Yes Apparent Anesthesia Complication: No : N PACU Discharge Time: 22:02 - Vital Signs Blood Pressure: 152/78 Pulse: 90 Resp Rate: 18 O2 Sat: 93 Temp: 95.4 F - Comments Anesthesia Discharge Time Report Time 22:02
[2016-10-26 18:24] VITALS: PULSE 86
[2016-10-29 09:06] VITALS: BP 149/70
== END 2016-10-26 19:44 | disposition home or self-care (01) ==
LOC: ED 23:39 → PCU 10-25 07:30 → MPS3 10-25 22:09
PROVIDERS: ADMIT Surgery; ATTEND Surgery
PROC: 0FT44ZZ Resection of Gallbladder, Percutaneous Endoscopic Approach (ICD-10-PCS; principal; 2016-10-24)
PROC: BF031ZZ Plain Radiography of Gallbladder and Bile Ducts using Low Osmolar Contrast (ICD-10-PCS; 2016-10-24)
DX: K80.12 Calculus of gallbladder with acute and chronic cholecystitis without obstruction (principal); E11.9 Type 2 diabetes mellitus without complications; Z79.4 Long term (current) use of insulin; J44.9 Chronic obstructive pulmonary disease, unspecified; F17.210 Nicotine dependence, cigarettes, uncomplicated; Z71.6 Tobacco abuse counseling
CPT/HCPCS: 36415; 47563; 72070; 72110; 74176; 74300; 80053; 80307; 81001; 82962; 83690; 85025; 87040; 94640; 96361; 96365; 96366; 96375; 96376; 99284; 99406; C9290; G0378; J0131; J1100; J1170; J1956; J2250; J2270; J2405; J2710; J3490; J7620; S0020